=== PATIENT | female | born 1975 | race Hispanic/Latino ===

== ENCOUNTER 2017-08-04 09:54 | Day surgery (SDC) | payer MEDICAID, SELFPAY ==
[2017-08-04] VITALS (8 sets, daily range): BP systolic 128–156; BP diastolic 81–99; PULSE 62–69; RESP 16; TEMP 36.3–36.6; O2SAT 95–99; BMI 28.5
--- NOTE | 2017-08-04 | EMB_PTH ---
PATIENT: YUMI BEST LOC: [facility] [place] U#:[id number] AGE/SX: 41/F ROOM: RE08/04/[address]: Dr. Blanca Faulkner, MDDOB: 1975 BED: DIS: 08/04/2017 SPEC #: [id number] RECD: 08/05/17 09:24 STATUS: VERN RENATA #: [id number] NEEMA: 08/04/17 00:[address]: Blanca Faulkner DEPT: SURGICAL PATHOLOGY RECD BY: Liang Mcdonald ENTERED: 08/05/17 09:24 SP TYPE: ENDOM BX/C MAMTAHR DR: Out of [facility] Doctor Tissues: Endometrium, NOS Procedures: Surgery Specimen Level IV HEADER OPERATION: Hysteroscopy, dilation and curettage, polypectomy, Miky Clear PRE-OP DIAGNOSIS: Abnormal uterine bleeding, endometrial polyp TISSUE SUBMITTED: Endometrial curettings and polyp MICROSCOPIC DIAGNOSIS Endometrial curettings and polyp: Disordered proliferative endometrium with focal superimposed early secretory changes. SUNSHINE:travis 08/08/17 MICROSCOPIC DESCRIPTION Slides are reviewed. GROSS DESCRIPTION Received in fixative is one container labeled with the patient's name and designated endometrial curettings and polyp. The specimen consists of multiple irregular fragments of marsh soft tissue that in aggregate measure 3 x 2.5 x 0.3 cm. The entire specimen is submitted in one cassette. / SUNSHINE:travis 08/05/17 TC:5 [facility]: [id number]
[2017-08-04 10:34] LABS: Internal QC Validated? YES +Cl - CLEAR BKGD
[2017-08-04 10:35] LABS: Pregnancy, Urine Negative Negative
[2017-08-04 10:54] LABS: Hematocrit 37.3 % (37-47); Hemoglobin 12.1 g/dl (12.0-15.0); Mean Corp Hgb Conc 32.4 g/gl (32-36); Mean Corpuscular Hgb 26.1 pg (27.0-32.0); Mean Corpuscular Volume 80.6 fL (81-99); Mean Platelet Vol. 9.3 fl (6.2-12.0); Platelet Count 309 K/mm3 (150-450); RBC Distribution Width CV 14.3 % (11.6-14.6); RBC Distribution Width SD 41.6 fl (35.1-43.9); Red Blood Count 4.63 M/mm3 (4.2-5.4); Scan Indicated on CBC? Y/N NO; White Blood Count 6.8 K/mm3 (4.4-11.0)
--- NOTE | 2017-08-04 15:08 | PCM.OP.BLANK ---
Operative Report Date of Procedure: 08/04/[address] Blanca [facility] Specialist: Cathy Philip MS3 Preoperative diagnosis: Abnormal uterine bleeding, endometrial Polyp Postoperative diagnosis: Same Procedure performed: Hysteroscopy, D&C with Truclear, Polypectomy Complications: None Implantable devices: none Estimated blood loss: 5 cc Drains: None Anesthesia: MAC Informed consent was obtained the patient was taken the operating room she was placed in supine position. She was given anesthesia. She was then placed in the [facility] where she was prepped and draped in the normal sterile fashion. At this time the weighted speculum was placed in the posterior fornix of vagina. Single-tooth tenaculum was used to gently grasp the anterior lip the cervix. At this time the uterine cavity was sounded to approximately 9 cm. Gentle dilatation was performed once adequate dilatation of the cervix was achieved the hysteroscope using normal saline as a distention medium was placed. Large fundal endometrial polyp noted . Otherwise no gross abnormalities. Tubal ostia visualized. TruClear incisor morcellator used to remove polyp to its base. There were no complications. Endometrial curettings also obtained using morcellating blade. This will be sent to pathology for evaluation. Procedure was deemed complete successful there are no complications. Anticipated normal postoperative course. Instrument lap count correct ?2. Vaginal Sweep was negative.
--- NOTE | 2017-08-04 15:12 | OP.PCM_ITS ---
Operative Report Date of Procedure: 08/04/[address] [place] Manager: Cathy Philip MS3 Preoperative diagnosis: Abnormal uterine bleeding, endometrial Polyp Postoperative diagnosis: Same Procedure performed: Hysteroscopy, D&C with Truclear, Polypectomy Complications: None Implantable devices: none Estimated blood loss: 5 cc Drains: None Anesthesia: MAC Informed consent was obtained the patient was taken the operating room she was placed in supine position. She was given anesthesia. She was then placed in the [facility] where she was prepped and draped in the normal sterile fashion. At this time the weighted speculum was placed in the posterior fornix of vagina. Single-tooth tenaculum was used to gently grasp the anterior lip the cervix. At this time the uterine cavity was sounded to approximately 9 cm. Gentle dilatation was performed once adequate dilatation of the cervix was achieved the hysteroscope using normal saline as a distention medium was placed. Large fundal endometrial polyp noted . Otherwise no gross abnormalities. Tubal ostia visualized. TruClear incisor morcellator used to remove polyp to its base. There were no complications. Endometrial curettings also obtained using morcellating blade. This will be sent to pathology for evaluation. Procedure was deemed complete successful there are no complications. Anticipated normal postoperative course. Instrument lap count correct ?2. Vaginal Sweep was negative.
--- NOTE | 2017-08-04 15:12 | PCM.DC.D&C ---
Discharge Diet: No Restrictions Discharge Activity: Return to Normal Activity, May Shower, May Take a Tub Bath - in 2 weeks. Allergies/Adverse Reactions: Allergies No Known Allergies Allergy (Verified 07/28/17 08:53) Medications to take at Discharge No Known/Unobtainable [No Known Home Medications] 07/29/16 Primary Care Physician: Sasha Doctor,Out of [Primary Care Provider] -
== END 2017-08-04 17:00 | disposition home or self-care (01) ==
LOC: SDC 10:00 → AC 10:08
PROVIDERS: Visit Provider Obstetrics & Gynecology
PROC: (CPT 58558; principal; 2017-08-04 11:30)
DX: N84.0 Polyp of corpus uteri (principal); N93.9 Abnormal uterine and vaginal bleeding, unspecified; F17.200 Nicotine dependence, unspecified, uncomplicated
CPT/HCPCS: 00952; 58558; 36415; 81025; 85027; 88305; J7120